=== PATIENT | male | born 1970 | race African-American/Black ===

== ENCOUNTER 2019-03-15 12:04 | Inpatient (IN) ==
[2019-03-15] MEDS ORDERED: SODIUM CHLORIDE 0.9% 500 ML IV SCH (12:30)
--- NOTE | 2019-03-15 12:44 | XRay Report ---
SINGLE VIEW CHEST CLINICAL HISTORY: Dizziness. FINDINGS: An AP, portable, upright chest radiograph is obtained. No prior studies are available for c omparison at the time of dictation. The examination is degraded by portable technique and patient rot ation. A single lead cardiac AICD is present within the left lateral chest wall. The heart is enlarge d. There is pulmonary vascular congestion and mild interstitial edema. Trace pleural effusions are muhammad spected. Bibasilar atelectasis is noted. No pneumothorax is seen. The skeletal structures are osteope lucian. The bony thorax is grossly intact. Advanced arthritic change is seen in the left shoulder. IMPRESSION: 1. Cardiomegaly and AICD with evidence of congestive failure. 2. Suspect trace pleural effusions. Electronically signed by: Jeremias Escalona M.D. 03/15/2019 12:43 PM
[2019-03-15 12:56] LABS: Basophils # (auto) 0.02 K/uL (0-0.2); Basophils % (auto) 0.2 %; Eosinophils # (auto) 0.12 K/uL (0-0.5); Eosinophils % (auto) 1.2 %; Hematocrit (blood only) 35.1 % (42-52); Hemoglobin 12.3 g/dL (14.0-18.0); Immature Granulocytes # (auto) 0.05 K/uL (0.00-0.02); Immature Granulocytes % (auto) 0.5 %; Lymphocytes # (auto) 1.57 K/uL (1.2-3.4); Lymphocytes % (auto) 15.1 %; Mean Corpuscular Volume 81.3 fL (80-100); Mean Platelet Volume 10.6 fL (7.4-10.4); Monocytes # (auto) 0.74 K/uL (0.11-0.59); Monocytes % (auto) 7.1 %; Neutrophils # (auto) 7.91 K/uL (1.4-6.5); Neutrophils % (auto) 75.9 %; Platelet Count 189 K/uL (130-400); RDW Coefficient of Variation 14.7 % (11.5-14.5); RDW Standard Deviation 43.6 fL (36.4-46.3); Red Blood Count 4.32 M/uL (4.7-6.1); White Blood Count 10.41 K/uL (4.8-10.8)
[2019-03-15 13:23] LABS: Albumin Globulin Ratio 0.7 (0.9-2); Albumin Level 3.5 gm/dl (3.4-5.0); BUN Creatinine Ratio 22.1 (10-20); Bilirubin,Total 0.6 mg/dl (0.2-1); Calcium 9.2 mg/dl (8.5-10.1); Creatinine Clr Calc Pharmacy 55.1 ml/min; Est GFR (African American) 34.2; Est GFR (Non-African American) 29.5; Total Protein 8.5 gm/dl (6.4-8.2)
[2019-03-15] MEDS ORDERED: ASPIRIN CHEW 324 MG PO STA (13:33)
[2019-03-15] MEDS ORDERED: NovoLIN-R INSULIN PER UNIT CHARGE IV STA (13:33)
[2019-03-15 13:42] LABS: Troponin I 0.106 ng/ml (0-0.045)
--- NOTE | 2019-03-15 14:11 | XRay Report ---
XR chest 1V portable HISTORY: Evaluate pacemaker. PER ER DR REQUEST COMPARISON: None. FINDINGS: There is a left lower lateral chest wall pacemaker. There is a single lead which appears in tact. Of note, only the proximal portion of the lead is identified on this study. IMPRESSION: Confirmation of a left-sided single lead pacemaker. Electronically signed by: Elver Barker M.D. 03/15/2019 2:09 PM
[2019-03-15 14:17] LABS: Potassium 5.8 mmol/L (3.5-5.1)
[2019-03-15 14:19] LABS: INR 1.1 (0.9-1.1); Partial Thromboplastin Ratio 0.9; Partial Thromboplastin Time 24.8 Seconds (21.0-31.0); Prothrombin Time 10.9 Seconds (9.0-12.0)
[2019-03-15 14:23] LABS: D Dimer 620 ug/L FEU (0-500)
[2019-03-15 14:25] LABS: Beta-Hydroxybutyrate 1.23 mg/dl (0.2-2.81)
--- NOTE | 2019-03-15 15:25 | History & Physical Report ---
Date of Service March 15, 2019 Assessment & Plan (1) Bradycardia: (2) History of implantable cardioverter-defibrillator (ICD) placement: This is a 48-year-old male with a PMH of systolic heart failure S/P ICD placement, DM II, HTN, HLD, COPD, CKD III and other medical problems listed below who presented by [facility] team today due to reported bradycardia in the 30s-40s. -HR in 70-80s since arrival -Device interrogation ordered. Request for device info requested from [facility] In [place] (fax & called) -ICD placed in 2013 at [facility]. Last interrogation was in 2016 -Pacer pads, ext defib ordered to have at bedside -Monitor on telemetry -Consider cardiology consult if bradycardia returns (3) Elevated troponin: Initial troponin mildly elevated at 0.106 in setting of ERENDIRA on CKD III -No chest pain or acute EKG changes -Cr elevated at 2.5 (baseline ~1.6-2), BUN of 55 -Trend troponin, monitor on tele (4) Elevated d-dimer: D-dimer obtained in ED with mild elevation at 620 -No tachycardia, oxygen saturation stable at 98% on RA, SOB has been chronic in setting of CHF so low index of suspicion for PE -CTA chest contraindicated in setting of ERENDIRA -Will obtain bilateral LE dopplers to evaluate for DVT (5) Acute kidney injury superimposed on chronic kidney disease: Cr elevated at 2.5 (baseline ~1.6-2), BUN of 55 -Already received diuretics today. Will hold ARB -Renal ultrasound to rule out obstruction as cause of ERENDIRA -Monitor with daily BMP (6) Hyperglycemia: (7) Diabetes mellitus, type II: BSG of 339 upon arrival. Was given 5 units of IV insulin in ED -Home regimen inclues Levemir 30u AM, 60u PM with SSI with meals -Most recent a1c of 7.6 in Dec 2018 -Glycemic consult placed -BSG AC HS (8) Systolic heart failure: Appears euvolemic on exam -Already took torsemide 40mg and spironolactone 25mg today -Assess volume status in AM to determine whether torsemide should be held or not -Repeat 2D echo (9) HTN (hypertension): Continue hydralazine, carvedilol with hold parameters, diuretics -Holding valsartan (10) COPD (chronic obstructive pulmonary disease): At baseline. Continue home inhalers PRN (11) JD on CPAP: CPAP HS DVT Ppx: SCDs Code status: FULL PCP: [facility] Dispo: Admitted to [facility]. Discharge planning ordered. Patient seen in collaboration with Dr. Bryant. Please see addendum. History of Present Illness Chief Complaint: Dizziness, fatigue Primary Care Provider: Dex Kumar DO This is a 48-year-old male with a PMH of systolic heart failure S/P ICD placement, DM II, HTN, HLD, COPD, CKD III and other medical problems listed below who presented by [facility] team today due to reported bradycardia in the 30s-40s. Patient has felt fatigued, lightheaded and short of breath for the past month. Denies any headache, chest pain, orthopnea, PND, wheezing or lower extremity edema. Denies any weight gain. Has recently establish care with [facility] and was being seen this morning with by nutrition for optimization of diabetes. When vitals were taken, heart rate was found to be in the 40s and patient was sent to the ED for further evaluation. Patient reports a lateral wall pacemaker placed in 2013 at [facility] in [place]. Last interrogation was in 2015. Had a 2D echo performed in December 2018 but non-optimal study was performed and EF was unable to be quantified. Previous echo was from April 2018 which revealed EF of 25 to 30%. Does not think he is followed with a [employer] member in the past. Denies any recent illness. No fever, chills, headache, palpitations, nausea, vomiting, abdominal pain, dysuria, diarrhea or constipation. Upon arrival in ED, patient is hemodynamically stable. Saturating at 97% on room air. Heart rate has been in the 70s to 80s. No leukocytosis. Potassium of 5.8, creatinine of 2.5, BUN of 55. Troponin elevated at 0.106. Glucose of 339, beta hydroybutyric acid WNL. Allergies Allergy/AdvReac Type Severity Reaction Status Date / Time No Known Allergies Allergy Unverified 03/15/19 12:50 Home Medications Home Medications Medication Instructions Recorded Confirmed Type albuterol sulfate 2 puff INHALATION Q4H PRN 03/15/19 03/15/19 History aspirin 81 mg PO DAILY 03/15/19 03/15/19 History atorvastatin 40 mg PO DAILY 03/15/19 03/15/19 History carvedilol 25 mg PO BID 03/15/19 03/15/19 History clotrimazole 10 mg PO UD 03/15/19 03/15/19 History fluticasone propion-salmeterol 1 puff INHALATION BID 03/15/19 03/15/19 History [Wixela Inhub] hydralazine 100 mg PO TID 03/15/19 03/15/19 History insulin detemir U-100 [Levemir 30 unit SUBCUT QAM 03/15/19 03/15/19 History U-100 Insulin] insulin detemir U-100 [Levemir 60 unit SUBCUT HS 03/15/19 03/15/19 History U-100 Insulin] isosorbide mononitrate 60 mg PO DAILY 03/15/19 03/15/19 History potassium chloride 20 meq PO DAILY 03/15/19 03/15/19 History spironolactone 25 mg PO DAILY 03/15/19 03/15/19 History sumatriptan succinate 100 mg PO UD PRN 03/15/19 03/15/19 History torsemide 40 mg PO DAILY 03/15/19 03/15/19 History trazodone 300 mg PO HS 03/15/19 03/15/19 History valsartan 80 mg PO BID 03/15/19 03/15/19 History Past Med/Surg History Medical History Depression (Chronic) CKD (chronic kidney disease), stage III (Chronic) HLD (hyperlipidemia) (Chronic) HTN (hypertension) (Chronic) COPD (chronic obstructive pulmonary disease) (Chronic) JD on CPAP (Chronic) Systolic heart failure (Chronic) Diabetes mellitus, type II (Chronic) Surgical History History of implantable cardioverter-defibrillator (ICD) placement (Resolved) Lateral chest wall placement in 2013 at [facility] H/O foot surgery (Resolved) History of ear surgery (Resolved) Family History Father Coronary heart disease Mother Diabetes Social History Preferred Language: Kuwaiti Communication Ability: Effective Faculty Administrator Required: No Beliefs That Will Affect Care: None Current Living Situation: Alone Other Information That Helps Us Care for You: No ( from s/o for now) Feels Safe at Home: Yes Safety Concerns: Feels Safe At This Time Smoking Status: Current some day smoker Tobacco Type: cigarettes Cigarettes Per Day: 2-3 Do You Dip or Chew Tobacco: No Second Hand Exposure: No Tobacco Cessation Education Requested by Patient: No Hx Alcohol Use: Yes Hx Substance Use: Yes substance use type: marijuana Last Used Substance: Unknow n Last Used Substance Other:: not for awhile Review of Systems Review of Systems: At least ten systems reviewed and negative except as noted in the HPI. Physical Exam Physical Exam: General Appearance: WD/WN, no apparent distress, morbidly obese Head: normocephalic, atraumatic Eyes: normal inspection, PERRL, EOMI ENT: hearing grossly normal, pharynx normal (moist mucous membranes) Neck: supple, no JVD, no adenopathy Respiratory/Chest: Decreased lung sounds at bases. No wheezes, rales or rhonci. No respiratory distress or accessory muscle use Cardiovascular: regular rate, rhythm, no murmur, normal peripheral pulses Abdomen/GI: normal bowel sounds, soft, non-tender to palpation Extremities/Musculoskelatal: normal inspection, no calf tenderness, normal capillary refill, no pedal edema Neurologic/Psych: alert, normal mood/affect, oriented x 3 Skin: normal color, warm/dry Results & Data Vital Signs (Past 12 Hours) Vital Signs Temp Pulse Pulse Resp BP Pulse Ox 03/15/19 14:44 75 18 97 03/15/19 13:48 79 22 96 03/15/19 12:24 79 16 121/53 L 98 03/15/19 12:15 37.1 C 80 20 98 Laboratory Results Short CBC 03/15/19 03/15/19 03/15/19 Range/Units 12:44 12:44 13:51 WBC 10.41 (4.8-10.8) K/uL Hgb 12.3 L (14.0-18.0) g/dL Hct 35.1 L (42-52) % Plt Count 189 (130-400) K/uL D-Dimer Cancelled Potassium (3.5-5.1) mmol/L 03/15/19 03/15/19 Range/Units 13:51 13:51 WBC (4.8-10.8) K/uL Hgb (14.0-18.0) g/dL Hct (42-52) % Plt Count (130-400) K/uL D-Dimer 620 H* Potassium 5.8 H (3.5-5.1) mmol/L BMP 03/15/19 03/15/19 12:44 13:51 Sodium 132 L Potassium 5.8 H Chloride 103 Carbon Dioxide 25 BUN 55 H Creatinine 2.50 H Glucose 339 H* Calcium 9.2 Cardiac Enzymes 03/15/19 Range/Units 12:44 Troponin I 0.106 H* (0-0.045) ng/ml Liver Function 03/15/19 03/15/19 Range/Units 12:44 13:51 Total Bilirubin 0.6 (0.2-1) mg/dl AST 14 L (15-37) U/L ALT 30 (12-78) U/L Alkaline Phosphatase 78 (45-117) U/L Albumin 3.5 (3.4-5.0) gm/dl Diagnostic Findings CXR: IMPRESSION: 1. Cardiomegaly and AICD with evidence of congestive failure. 2. Suspect trace pleural effusions. IMPRESSION: Confirmation of a left-sided single lead pacemaker. ECG Rhythm: sinus rhythm Findings: + LAFB (known) and + PVC Change: no significant change Supervising Physician Co-Signing Physician Notes Patient is a 48-year-old male with history of CHF S/P AICD, CKD, COPD and other problems presents with history of generalized weakness, shortness of breath on exertion since last few months. Patient was noted to have bradycardia by his home health nurse who recommended to be evaluated in ED. Patient believes his AICD battery is due for change. He denies any weight gain, lower extremity edema, chest pain. Reports associated mild dizziness. Please review HPI for complete details of presentation. CXR suggestive of congestion. Also noted to have blood glucose level elevated at 339, creatinine levels increased from baseline to 2.5, mild troponin elevation 0.106, elevated d-dimer. On exam patient is obese, normocephalic atraumatic, no apparent distress, lungs decreased breath sounds at bases, clear to auscultation, distant heart sounds, pacemaker on left side of the chest, abdomen soft nontender, no pedal edema, grossly normal neurological focal deficits. Patient is admitted for evaluation of bradycardia, AICD interrogation, ERENDIRA, hyperglycemia, and for further evaluation of elevated troponins and elevated d-dimer. Patient clinically does not look volume overloaded. Will hold torsemide, valsartan. Check renal ultrasound to rule out obstruction. Received IV fluids in ED. Consider IV fluids tomorrow based on volume status and renal function. Pacemaker interrogation requested. Trend cardiac enzymes, check echo for wall motion abnormality. Venous Dopplers negative for DVT. Consider VQ scan if suspicious for PE. Pacer pads at bedside. Monitor in telemetry. I personally reviewed the record. Patient is interviewed and examined at bedside. Patient's care is coordinated with Katie Ramsey PA-C. Please refer to the documentation above for details of patient's presentation and for discussion of other issues.
[2019-03-15] MEDS ORDERED: PHARMACY GLYCEMIC MGMT CONSULT STA (15:40)
[2019-03-15] MEDS ORDERED: ONDANSETRON INJ 2 MG/ML 2 ML VIAL IV PRN (16:36)
[2019-03-15] MEDS ORDERED: ALBUTEROL HFA 8 GM INHALER INH PRN (16:36)
[2019-03-15] MEDS ORDERED: CARBOHYDRATES FOR HYPOGLYCEMIA PO PRN (16:36)
[2019-03-15] MEDS ORDERED: POLYETHYLENE (MIRALAX) 17 GM PACK PO PRN (16:36)
[2019-03-15] MEDS ORDERED: GLUCOSE 40% GEL 15 GM TUBE PO PRN (16:36)
[2019-03-15] MEDS ORDERED: ACETAMINOPHEN 325 MG TAB PO PRN (16:36)
[2019-03-15] MEDS ORDERED: SUMAtriptan succinate 50 MG TAB PO PRN (16:36)
[2019-03-15] MEDS ORDERED: GLUCAGON FOR INJ 1 MG VIAL SQ PRN (16:36)
[2019-03-15] MEDS ORDERED: DEXTROSE 50% 50 ML SYRINGE IV PRN (16:36)
[2019-03-15] MEDS ORDERED: GLUCOSE 10 TABS/TUBE PO PRN (16:36)
--- NOTE | 2019-03-15 16:44 | Emergency Department Note ---
Entered by Sher Carlton acting as a scribe for History of Present Illness General Chief complaint: Dizziness Stated complaint: weakness/dizzy Source: patient Mode of arrival: ambulatory History of Present Illness Provider complaint: Dizziness Onset (ago): month(s) 1 Location: head Pain Consistency: + constant Quality: + other (Dizziness) Associated symptoms: + shortness of breath; no nausea/vomiting Patient is a 48 year old male who presents himself to the ER with complaint of dizziness beginning a month ago. Patient states he had a nurse from [facility] who told him he had to get his defibrillator battery changed in the ER. Patient states he has been having accompanying symptoms of runny nose and coughs, but this has been present for quite some time now. He states when he coughs he does get some phlegm in the morning. He states his pain consistency as constant. Patient also states he has had a pacemaker placed in him in 2013 and believes its a [employer] scientific. Patient states his weight has stabilized and he takes no blood thinners. Patient also reports having shortness of breath all throu ghout the day. Patients EF revealed values of 30 to 35% and moderate MR. Patient had a normal cath on November 2017 and has non ischemic cardiomyopathy, He denies nausea and vomiting. Home Medications Home Medications Medication Instructions Recorded Confirmed Type albuterol sulfate 2 puff INHALATION Q4H PRN 03/15/19 03/15/19 History aspirin 81 mg PO DAILY 03/15/19 03/15/19 History atorvastatin 40 mg PO DAILY 03/15/19 03/15/19 History carvedilol 25 mg PO BID 03/15/19 03/15/19 History clotrimazole 10 mg PO UD 03/15/19 03/15/19 History fluticasone propion-salmeterol 1 puff INHALATION BID 03/15/19 03/15/19 History [Wixela Inhub] hydralazine 100 mg PO TID 03/15/19 03/15/19 History insulin detemir U-100 [Levemir 30 unit SUBCUT QAM 03/15/19 03/15/19 History U-100 Insulin] insulin detemir U-100 [Levemir 60 unit SUBCUT HS 03/15/19 03/15/19 History U-100 Insulin] isosorbide mononitrate 60 mg PO DAILY 03/15/19 03/15/19 History potassium chloride 20 meq PO DAILY 03/15/19 03/15/19 History spironolactone 25 mg PO DAILY 03/15/19 03/15/19 History sumatriptan succinate 100 mg PO UD PRN 03/15/19 03/15/19 History torsemide 40 mg PO DAILY 03/15/19 03/15/19 History trazodone 300 mg PO HS 03/15/19 03/15/19 History valsartan 80 mg PO BID 03/15/19 03/15/19 History Allergies Allergy/AdvReac Type Severity Reaction Status Date / Time No Known Allergies Allergy Unverified 03/15/19 12:50 Past Med/Surg History Medical History Depression (Chronic) CKD (chronic kidney disease), stage III (Chronic) HLD (hyperlipidemia) (Chronic) HTN (hypertension) (Chronic) COPD (chronic obstructive pulmonary disease) (Chronic) JD on CPAP (Chronic) Systolic heart failure (Chronic) Diabetes mellitus, type II (Chronic) Surgical History History of implantable cardioverter-defibrillator (ICD) placement (Resolved) Lateral chest wall placement in 2013 at [facility] H/O foot surgery (Resolved) History of ear surgery (Resolved) Family History Father Coronary heart disease Mother Diabetes Social History Preferred Language: Japanese Communication Ability: Effective 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 Beliefs That Will Affect Care: None Current Living Situation: Alone Other Information That Helps Us Care for You: No ( from s/o for now) Feels Safe at Home: Yes Safety Concerns: Feels Safe At This Time Smoking Status: Current some day smoker Tobacco Type: cigarettes Cigarettes Per Day: 2-3 Do You Dip or Chew Tobacco: No Second Hand Exposure: No Tobacco Cessation Education Requested by Patient: No Hx Alcohol Use: Yes Hx Substance Use: Yes substance use type: marijuana Last Used Substance: Unkn own Last Used Substance Other:: not for awhile Review of Systems See HPI for pertinent positives & negatives. and A total of 10 systems reviewed and were otherwise negative Physical Exam Vital Signs Vital Signs - 24 hr 03/15/19 12:15 03/15/19 12:24 03/15/19 12:36 Temperature 37.1 C Temperature Source Oral Sepsis Recent Fever Within 48 Hours No Sepsis Action Taken by Nursing No Action Required Pulse Rate - Lying Pulse Rate - Sitting Pulse Rate - Standing Pulse Rate 80 82 Pulse Rate [Finger] 79 Pulse Rate from SpO2 Sensor 55 L Respiratory Rate 20 16 17 Respiratory Effort / Characteristics Respiratory Depth Respiratory Pattern Blood Pressure - Lying Blood Pressure - Sitting Blood Pressure- Standing Blood Pressure Blood Pressure [Right Arm] 121/53 L Blood Pressure Mean Blood Pressure Mean [Right Arm] 75 Pulse Oximetry 98 98 97 Oxygen Delivery Method Room Air Room Air 03/15/19 12:40 03/15/19 12:50 03/15/19 13:00 Temperature Temperature Source Sepsis Recent Fever Within 48 Hours Sepsis Action Taken by Nursing Pulse Rate - Lying Pulse Rate - Sitting Pulse Rate - Standing Pulse Rate 81 81 85 Pulse Rate [Finger] Pulse Rate from SpO2 Sensor 52 L 55 L Respiratory Rate 25 H 22 17 Respiratory Effort / Characteristics Respiratory Depth Respiratory Pattern Blood Pressure - Lying Blood Pressure - Sitting Blood Pressure- Standing Blood Pressure Blood Pressure [Right Arm] Blood Pressure Mean Blood Pressure Mean [Right Arm] Pulse Oximetry 97 97 Oxygen Delivery Method 03/15/19 13:04 03/15/19 13:06 03/15/19 13:07 Temperature Temperature Source Sepsis Recent Fever Within 48 Hours Sepsis Action Taken by Nursing Pulse Rate - Lying 79 Pulse Rate - Sitting 81 Pulse Rate - Standing 81 Pulse Rate 80 81 Pulse Rate [Finger] Pulse Rate from SpO2 Sensor Respiratory Rate 15 21 Respiratory Effort / Characteristics Respiratory Depth Respiratory Pattern Blood Pressure - Lying 117/58 L Blood Pressure - Sitting 134/72 Blood Pressure- Standing 136/83 Blood Pressure 117/58 L 134/72 Blood Pressure [Right Arm] Blood Pressure Mean 77 92 Blood Pressure Mean [Right Arm] Pulse Oximetry Oxygen Delivery Method 03/15/19 13:10 03/15/19 13:12 03/15/19 13:20 Temperature Temperature Source Sepsis Recent Fever Within 48 Hours Sepsis Action Taken by Nursing Pulse Rate - Lying Pulse Rate - Sitting Pulse Rate - Standing Pulse Rate 83 79 75 Pulse Rate [Finger] Pulse Rate from SpO2 Sensor Respiratory Rate 16 23 28 H Respiratory Effort / Characteristics Respiratory Depth Respiratory Pattern Blood Pressure - Lying Blood Pressure - Sitting Blood Pressure- Standing Blood Pressure 136/83 Blood Pressure [Right Arm] Blood Pressure Mean 100 Blood Pressure Mean [Right Arm] Pulse Oximetry Oxygen Delivery Method 03/15/19 13:34 03/15/19 13:40 03/15/19 13:48 Temperature Temperature Source Sepsis Recent Fever Within 48 Hours Sepsis Action Taken by Nursing Pulse Rate - Lying Pulse Rate - Sitting Pulse Rate - Standing Pulse Rate 100 H 77 Pulse Rate [Finger] 79 Pulse Rate from SpO2 Sensor 54 L 51 L Respiratory Rate 25 H 24 22 Respiratory Effort / Characteristics Respiratory Depth Respiratory Pattern Blood Pressure - Lying Blood Pressure - Sitting Blood Pressure- Standing Blood Pressure Blood Pressure [Right Arm] Blood Pressure Mean Blood Pressure Mean [Right Arm] Pulse Oximetry 91 97 96 Oxygen Delivery Method Room Air 03/15/19 13:50 03/15/19 14:00 03/15/19 14:07 Temperature Temperature Source Sepsis Recent Fever Within 48 Hours Sepsis Action Taken by Nursing Pulse Rate - Lying Pulse Rate - Sitting Pulse Rate - Standing Pulse Rate 76 78 Pulse Rate [Finger] Pulse Rate from SpO2 Sensor 50 L 47 L Respiratory Rate 24 20 Respiratory Effort / Characteristics Spontaneous SOB on Exertion Respiratory Depth Normal Respiratory Pattern Regular Blood Pressure - Lying Blood Pressure - Sitting Blood Pressure- Standing Blood Pressure Blood Pressure [Right Arm] Blood Pressure Mean Blood Pressure Mean [Right Arm] Pulse Oximetry 98 96 Oxygen Delivery Method Room Air 03/15/19 14:10 03/15/19 14:20 03/15/19 14:30 Temperature Temperature Source Sepsis Recent Fever Within 48 Hours Sepsis Action Taken by Nursing Pulse Rate - Lying Pulse Rate - Sitting Pulse Rate - Standing Pulse Rate 77 77 76 Pulse Rate [Finger] Pulse Rate from SpO2 Sensor 49 L 63 62 Respiratory Rate 34 H 18 19 Respiratory Effort / Characteristics Respiratory Depth Respiratory Pattern Blood Pressure - Lying Blood Pressure - Sitting Blood Pressure- Standing Blood Pressure Blood Pressure [Right Arm] Blood Pressure Mean Blood Pressure Mean [Right Arm] Pulse Oximetry 98 97 92 Oxygen Delivery Method 03/15/19 14:40 03/15/19 14:44 03/15/19 14:50 Temperature Temperature Source Sepsis Recent Fever Within 48 Hours Sepsis Action Taken by Nursing Pulse Rate - Lying Pulse Rate - Sitting Pulse Rate - Standing Pulse Rate 75 79 Pulse Rate [Finger] 75 Pulse Rate from SpO2 Sensor 49 L 55 L Respiratory Rate 12 18 23 Respiratory Effort / Characteristics Respiratory Depth Respiratory Pattern Blood Pressure - Lying Blood Pressure - Sitting Blood Pressure- Standing Blood Pressure Blood Pressure [Right Arm] Blood Pressure Mean Blood Pressure Mean [Right Arm] Pulse Oximetry 97 97 96 Oxygen Delivery Method Room Air 03/15/19 15:00 03/15/19 15:16 03/15/19 15:17 Temperature Temperature Source Sepsis Recent Fever Within 48 Hours Sepsis Action Taken by Nursing Pulse Rate - Lying Pulse Rate - Sitting Pulse Rate - Standing Pulse Rate 77 84 75 Pulse Rate [Finger] 81 Pulse Rate from SpO2 Sensor 76 Respiratory Rate 15 25 H 17 Respiratory Effort / Characteristics Respiratory Depth Respiratory Pattern Blood Pressure - Lying Blood Pressure - Sitting Blood Pressure- Standing Blood Pressure 119/75 Blood Pressure [Right Arm] 119/75 Blood Pressure Mean 89 Blood Pressure Mean [Right Arm] 89 Pulse Oximetry 93 Oxygen Delivery Method Room Air 03/15/19 15:20 03/15/19 15:30 03/15/19 15:31 Temperature Temperature Source Sepsis Recent Fever Within 48 Hours Sepsis Action Taken by Nursing Pulse Rate - Lying Pulse Rate - Sitting Pulse Rate - Standing Pulse Rate 77 75 76 Pulse Rate [Finger] Pulse Rate from SpO2 Sensor 76 60 67 Respiratory Rate 26 H 11 L 16 Respiratory Effort / Characteristics Respiratory Depth Respiratory Pattern Blood Pressure - Lying Blood Pressure - Sitting Blood Pressure- Standing Blood Pressure 140/86 Blood Pressure [Right Arm] Blood Pressure Mean 104 Blood Pressure Mean [Right Arm] Pulse Oximetry 97 94 97 Oxygen Delivery Method 03/15/19 15:40 03/15/19 15:50 03/15/19 16:00 Temperature Temperature Source Sepsis Recent Fever Within 48 Hours Sepsis Action Taken by Nursing Pulse Rate - Lying Pulse Rate - Sitting Pulse Rate - Standing Pulse Rate 75 72 73 Pulse Rate [Finger] Pulse Rate from SpO2 Sensor 67 69 73 Respiratory Rate 18 13 15 Respiratory Effort / Characteristics Respiratory Depth Respiratory Pattern Blood Pressure - Lying Blood Pressure - Sitting Blood Pressure- Standing Blood Pressure 132/90 Blood Pressure [Right Arm] Blood Pressure Mean 104 Blood Pressure Mean [Right Arm] Pulse Oximetry 98 98 98 Oxygen Delivery Method 03/15/19 16:10 03/15/19 16:15 Temperature Temperature Source Sepsis Recent Fever Within 48 Hours Sepsis Action Taken by Nursing Pulse Rate - Lying Pulse Rate - Sitting Pulse Rate - Standing Pulse Rate 70 70 Pulse Rate [Finger] Pulse Rate from SpO2 Sensor 66 Respiratory Rate 25 H 25 H Respiratory Effort / Characteristics Respiratory Depth Respiratory Pattern Blood Pressure - Lying Blood Pressure - Sitting Blood Pressure- Standing Blood Pressure 132/90 Blood Pressure [Right Arm] Blood Pressure Mean Blood Pressure Mean [Right Arm] Pulse Oximetry 98 98 Oxygen Delivery Method Room Air GENERAL: obese, alert, well appearing, well nourished, no distress, non-toxic, speaking in full sentences EYE EXAM: normal conjunctiva, PERRL and EOM's intact OROPHARYNX: no exudate, no erythema, lips, buccal mucosa, and tongue normal and mucous membranes are moist NECK: supple, no nuchal rigidity, no adenopathy, non-tender LUNGS: Clear to auscultation. Normal chest wall mechanics HEART: no distant murmurs, S1 normal and S2 normal ABDOMEN: abdomen soft, non-tender, normo-active bowel sounds, no masses, no rebound or guarding. BACK: Back is symmetrical on inspection and there is no deformity, no midline tenderness, no CVA tenderness. SKIN: no rashes and no bruising UPPER EXTREMITIES: upper extremities are grossly normal. LOWER EXTREMITIES: No pitting edema. NEURO EXAM: Normal sensorium, cranial nerves II-XII intact, normal speech, no weakness of arms, no weakness of legs. No drift. Finger to nose intact. Gross sensation intact. Course Vital signs were reviewed and showed hypotension. The patients medical record was reviewed The above diagnostic studies were performed and reviewed. ED treatments and interventions as stated above. 1220: The patient was evaluated in room A11. A complete history and physical examination was performed. 1346: I spoke with Katie Ramsey PA-C regarding the patient's case and she will admit the patient to [facility]. 1348: Upon reevaluation, the patient will be admitted.I discussed my findings with the patient and her understands and agrees with the treatment plan. Based on the patients age, coexisting illnesses, exam and lab findings the decision to treat as an inpatient was made. The patient remained stable while under my care. The patient will be evaluated for further management by [facility]. Consultations Consultation #1: [facility]. Time: 13:46 Administered Medications Discontinued Medications Aspirin (Aspirin) 324 mg PO NOW STA Stop: 03/15/19 13:34 Last Admin: 03/15/19 13:44 Dose: 324 mg Documented by: [id number] Sodium Chloride (Nss) 500 mls @ 999 mls/hr IV .Q31M ADINA Stop: 03/15/19 13:00 Last Infusion: 03/15/19 13:48 Dose: 0 mls/hr Documented by: [id number] Admin: 03/15/19 13:15 Dose: 999 mls/hr Documented by: [id number] Insulin Human Regular (Novolin R U-100 Per Unit) 5 units IV NOW STA Stop: 03/15/19 13:34 Last Admin: 03/15/19 13:44 Dose: 5 units Documented by: [id number] Cosigned by: [id number] Medical Decision Making Differential Diagnosis Differential diagnosis: Etiologies such as benign positional vertigo, labrynthitis, dehydration, hypovolemia, anemia, tumor, infection, hypoglycemia, electrolyte abnormalities, cardiac sources, toxicological sources, central neurologic process, as well as others were entertained. Medical Records Attestation: I reviewed the patient's medical records. Home Medications Current Medication List: was personally reviewed by me Laboratory Data Attestation: I reviewed the patient's lab results. Result diagrams: 03/15/19 12:44 03/15/19 13:51 Lab Results 03/15/19 03/15/19 03/15/19 Range/Units 12:44 12:44 12:44 WBC 10.41 (4.8-10.8) K/uL RBC 4.32 L (4.7-6.1) M/uL Hgb 12.3 L (14.0-18.0) g/dL Hct 35.1 L (42-52) % MCV 81.3 (80-100) fL MCH 28.5 (25-34) pg MCHC 35.0 (32-36) g/dL RDW Std Deviation 43.6 (36.4-46.3) fL RDW Coeff of Hillary 14.7 H (11.5-14.5) % Plt Count 189 (130-400) K/uL MPV 10.6 H (7.4-10.4) fL Immature Gran % (Auto) 0.5 % Neut % (Auto) 75.9 % Lymph % (Auto) 15.1 % [place] % (Auto) 7.1 % Eos % (Auto) 1.2 % Baso % (Auto) 0.2 % Immature Gran # (Auto) 0.05 H (0.00-0.02) K/uL Neut # (Auto) 7.91 H (1.4-6.5) K/uL Lymph # (Auto) 1.57 (1.2-3.4) K/uL [place] # (Auto) 0.74 H (0.11-0.59) K/uL Eos # (Auto) 0.12 (0-0.5) K/uL Baso # (Auto) 0.02 (0-0.2) K/uL PT Cancelled INR Cancelled APTT (21.0-31.0) Seconds PTT Ratio D-Dimer Sodium 132 L (136-145) mmol/L Potassium (3.5-5.1) mmol/L Chloride 103 (98-107) mmol/L Carbon Dioxide 25 (21-32) mmol/L Anion Gap 4.0 (3-11) BUN 55 H (7-18) mg/dl Creatinine 2.50 H (0.6-1.4) mg/dl Est Cr Clr Drug Dosing 55.1 ml/min Est GFR ( Amer) 34.2 Est GFR (Non-Af Amer) 29.5 BUN/Creatinine Ratio 22.1 H (10-20) Glucose 339 H* (70-99) mg/dl Calcium 9.2 (8.5-10.1) mg/dl Total Bilirubin 0.6 (0.2-1) mg/dl AST (15-37) U/L ALT 30 (12-78) U/L Alkaline Phosphatase 78 (45-117) U/L Troponin I 0.106 H* (0-0.045) ng/ml Total Protein 8.5 H (6.4-8.2) gm/dl Albumin 3.5 (3.4-5.0) gm/dl Globulin 5.0 H (2.5-4.0) gm/dl Albumin/Globulin Ratio 0.7 L (0.9-2) Beta-Hydroxybutyric Acd (0.2-2.81) mg/dl 03/15/19 03/15/19 03/15/19 Range/Units 13:51 13:51 13:51 WBC (4.8-10.8) K/uL RBC (4.7-6.1) M/uL Hgb (14.0-18.0) g/dL Hct (42-52) % MCV (80-100) fL MCH (25-34) pg MCHC (32-36) g/dL RDW Std Deviation (36.4-46.3) fL RDW Coeff of Hillary (11.5-14.5) % Plt Count (130-400) K/uL MPV (7.4-10.4) fL Immature Gran % (Auto) % Neut % (Auto) % Lymph % (Auto) % [place] % (Auto) % Eos % (Auto) % Baso % (Auto) % Immature Gran # (Auto) (0.00-0.02) K/uL Neut # (Auto) (1.4-6.5) K/uL Lymph # (Auto) (1.2-3.4) K/uL [place] # (Auto) (0.11-0.59) K/uL Eos # (Auto) (0-0.5) K/uL Baso # (Auto) (0-0.2) K/uL PT 10.9 INR 1.1 APTT 24.8 (21.0-31.0) Seconds PTT Ratio 0.9 D-Dimer Cancelled 620 H* Sodium (136-145) mmol/L Potassium 5.8 H (3.5-5.1) mmol/L Chloride (98-107) mmol/L Carbon Dioxide (21-32) mmol/L Anion Gap (3-11) BUN (7-18) mg/dl Creatinine (0.6-1.4) mg/dl Est Cr Clr Drug Dosing ml/min Est GFR ( Amer) Est GFR (Non-Af Amer) BUN/Creatinine Ratio (10-20) Glucose (70-99) mg/dl Calcium (8.5-10.1) mg/dl Total Bilirubin (0.2-1) mg/dl AST 14 L (15-37) U/L ALT (12-78) U/L Alkaline Phosphatase (45-117) U/L Troponin I (0-0.045) ng/ml Total Protein (6.4-8.2) gm/dl Albumin (3.4-5.0) gm/dl Globulin (2.5-4.0) gm/dl Albumin/Globulin Ratio (0.9-2) Beta-Hydroxybutyric Acd 1.23 (0.2-2.81) mg/dl Imaging Data Attestation: I personally reviewed and interpreted this imaging study as follows: Radiologist's Impression: Radiology results as stated below per my review and the radiologist's interpretation: XR chest 1V portable HISTORY: Evaluate pacemaker. PER ER DR REQUEST COMPARISON: None. FINDINGS: There is a left lower lateral chest wall pacemaker. There is a single lead which appears intact. Of note, only the proximal portion of the lead is identified on this study. IMPRESSION: Confirmation of a left-sided single lead pacemaker. Electronically signed by: Elver Barker M.D. 03/15/2019 2:09 PM Dictated: 03/15/19 1408 Transcribed: 03/15/19 1408 SINGLE VIEW CHEST CLINICAL HISTORY: Dizziness. FINDINGS: An AP, portable, upright chest radiograph is obtained. No prior studies are available for comparison at the time of dictation. The examination is degraded by portable technique and patient rotation. A single lead cardiac AICD is present within the left lateral chest wall. The heart is enlarged. There is pulmonary vascular congestion and mild interstitial edema. Trace pleural effusions are suspected. Bibasilar atelectasis is noted. No pneumothorax is seen. The skeletal structures are osteopenic. The bony thorax is grossly intact. Advanced arthritic change is seen in the left shoulder. IMPRESSION: 1. Cardiomegaly and AICD with evidence of congestive failure. 2. Suspect trace pleural effusions. Electronically signed by: Jeremias Escalona M.D. 03/15/2019 12:43 PM Dictated: 03/15/19 1242 Transcribed: 03/15/19 1242 ECG Data Attestation: I personally reviewed and interpreted this ECG as follows: Indication: other (Dizziness) Rate (beats per minute): 79 Rhythm: sinus rhythm Findings: + other (Left axis low voltage, TWI in Lateral and high lateral Carla ) and + PVC Comparison ECG Date: from (01-12-19) Change: the following changes noted (No t waves in lateral and high lateral ) Blood Pressure Blood Pressure Findings: Low blood pressure Blood Pressure Disposition: further management by hospitalist DANTE Higgins Patient is a 48-year-old male that presents the ER for feeling tired and dizzy for the past month. He notes nurse was at home and checked his pulse it was low in the 40s so was referred in. Upon review of his outside records he has a history of nonischemic cardiomyopathy with last cath in 2018 which was normal. EF is about 30%. Labs show no significant leukocytosis or anemia. D-dimer was elevated but creatinine was significant elevated 2.5. Potassium was slightly elevated at 5.8. Previous creatinine was 2.3 per [facility] records. Troponin was elevated at 0.1. He has no chest pain. Question if this is anginal equivalent of shortness of breath. Chest x-ray was unremarkable. Patient was given aspirin. He was updated bedside. Discussed with the hospitalist patient was agreeable for observation. Unable to evaluate pacer as were unable to figure out which one it was. Chest x-ray did supports CHF which I do favor is the overlying cause of the shortness of breath at this time. Impression & Plan Elevated troponin, Acute kidney injury, Hyperglycemia Discharge Plan Visit Data Chief Complaint: Dizziness Stated Complaint: weakness/dizzy ED Provider: Mazin Raya Discharge Problem: Elevated troponin, Acute kidney injury, Hyperglycemia Patient Disposition: Being Evaluated by Hospitalist Discharge Instructions Interventions: ED Discharge Assessment Last Done: 03/15/19 16:15 The scribe's documentation has been prepared under my direction and personally reviewed by me in its entirety. I confirm that the note above accurately reflects all work, treatment, procedures, and medical decision making performed by me.
--- NOTE | 2019-03-15 19:07 | Ultrasound Report ---
US venous doppler LE BI CLINICAL HISTORY: Leg swelling COMPARISON STUDY: No previous studies for comparison. FINDINGS: Real-time and color flow Doppler imaging were performed. Flow was seen within the femoral, popliteal and calf veins with no intraluminal thrombus demonstrated. The saphenous vein is patent. IMPRESSION: No evidence of lower extremity DVT. Electronically signed by: Melvin Lawson M.D. 03/15/2019 7:06 PM
--- NOTE | 2019-03-15 19:09 | Ultrasound Report ---
EXAMINATION: RENAL ULTRASOUND CLINICAL HISTORY: Acute renal insufficiency. Evaluate for renal obstruction. COMPARISON STUDY: FINDINGS: The right kidney measures 12.1 cm. The left kidney measures 11.9 cm. There is no right-mar ed hydronephrosis. There is minimal dilatation of the left renal pelvis. Is a 24 mm right renal cyst . There is borderline increased renal cortical echogenicity. The bladder was not fully distended. Neither ureteral jet was visualized. IMPRESSION : 1. 24 mm right renal cyst 2. No evidence of right renal hydronephrosis 3. Mild dilatation of the left renal pelvis. Electronically signed by: Melvin Lawson M.D. 03/15/2019 7:08 PM
[2019-03-15] MEDS: CLOTRIMAZOLE 10 MG TROCHE BUCCAL SCH ×2 (19:34→22:44)
[2019-03-15] MEDS ORDERED: PHARMACY GLYCEMIC MGMT CONSULT PRN (20:33)
[2019-03-15] MEDS ORDERED: TRAZODONE HCL 100 MG TAB PO SCH (21:00)
[2019-03-15] MEDS ORDERED: INSULIN DETEMIR FLEXPEN/FLEX TOUCH 100 UNITS/ML 3ML SC STA (21:39)
[2019-03-15] MEDS: FLUTICASONE/SALMETEROL 250/50 (ADVAIR) 14 PUFF/1 INHALER INH SCH (21:55)
[2019-03-15] MEDS: HydrALAZINE TAB 50 MG TAB PO SCH (21:56)
[2019-03-15] MEDS: CARVEDILOL 25 MG TAB PO SCH (21:56)
[2019-03-15] MEDS: INSULIN ASPART 100 UNITS/ML 3 ML PEN SC SCH (22:39)
[2019-03-16] MEDS: INSULIN ASPART 100 UNITS/ML 3 ML PEN SC SCH ×5 (01:11→17:39)
[2019-03-16 06:59] LABS: Hematocrit (blood only) 33.5 % (42-52); Hemoglobin 11.7 g/dL (14.0-18.0); Mean Corpuscular Hgb Conc 34.9 g/dL (32-36); Mean Corpuscular Volume 80.9 fL (80-100); Mean Platelet Volume 9.1 fL (7.4-10.4); Platelet Count 149 K/uL (130-400); RDW Coefficient of Variation 14.8 % (11.5-14.5); RDW Standard Deviation 43.2 fL (36.4-46.3); Red Blood Count 4.14 M/uL (4.7-6.1); White Blood Count 8.58 K/uL (4.8-10.8)
[2019-03-16 07:27] LABS: BUN Creatinine Ratio 23.6 (10-20); Calcium 8.5 mg/dl (8.5-10.1); Creatinine Clr Calc Pharmacy 65.3 ml/min; Est GFR (African American) 41.5; Est GFR (Non-African American) 35.8
[2019-03-16] MEDS: FLUTICASONE/SALMETEROL 250/50 (ADVAIR) 14 PUFF/1 INHALER INH SCH (08:29)
[2019-03-16] MEDS: CLOTRIMAZOLE 10 MG TROCHE BUCCAL SCH ×3 (08:30→15:19)
[2019-03-16] MEDS: CARVEDILOL 25 MG TAB PO SCH (08:33)
[2019-03-16] MEDS: HydrALAZINE TAB 50 MG TAB PO SCH ×2 (08:35→13:21)
[2019-03-16] MEDS ORDERED: SPIRONOLACTONE 25 MG TAB PO SCH (09:00)
[2019-03-16] MEDS ORDERED: ISOSORBIDE MONO EXTENDED REL 60 MG TABCR PO SCH (09:00)
[2019-03-16] MEDS ORDERED: TORSEMIDE 10 MG TAB PO SCH (09:00)
[2019-03-16] MEDS ORDERED: ASPIRIN 81 MG ECTAB PO SCH (09:00)
[2019-03-16] MEDS ORDERED: ATORVASTATIN 40 MG TAB PO SCH (09:00)
[2019-03-16] MEDS ORDERED: INSULIN DETEMIR FLEXPEN/FLEX TOUCH 100 UNITS/ML 3ML SC ONE (13:30)
--- NOTE | 2019-03-16 15:43 | Pharmacy Report ---
Glycemic Control Consultation - Date of Service March 16, 2019 - Scope Scope: Glycemic Pharmacist consulted for glycemic control and to write orders per [facility] inpatient glycemic control protocol - Objective Weight: 149.4 kg Accuchecks BSG (last 24hrs): 03/15/19 03/15/19 03/16/19 16:43 21:07 01:00 Glucose POC Glucose 210 H 327 H* 281 H 03/16/19 03/16/19 03/16/19 03:58 06:45 08:22 Glucose 132 H POC Glucose 224 H 109 H 03/16/19 11:54 Glucose POC Glucose 223 H Laboratory Data (last 24hrs): 03/15/19 03/16/19 16:49 06:45 Potassium 4.7 D 4.0 Carbon Dioxide 24 Anion Gap 6.0 Creatinine 2.13 H D Est Cr Clr Drug Dosing 65.3 - Recent Pertinent Medications Outpatient Anti-diabetic Regimen: * Levemir 30 units SC qAM, 60 units qPM * Novolog SC AC, 15 units with breakfast, 20 units with lunch, 20 units with dinner * A1c = 7.6 % in December 2018 per H&P The patient is currently receiving: * Basal insulin: Levemir 70 units 4/18 PM * Correctional Insulin: Novolog Correction per scale ACHS Goal Range: Low 110 mg/dL - High 140 mg/dL Correction Factor: 15 mg/dL/unit * Prandial insulin: Per carb ratio of 1 unit per 5 grams CHO consumed * Oral Agents: Risk Factors for Insulin Resistance: * Diet: T2DM - Assessment & Plan Assessment & Plan: ASSESSMENT: * 48 yo M with T2DM with good control as an outpatient per HbA1c in H&P admitted with symptomatic bradycardia. No previous visits to [facility]. * BSG's in 300's on arrival - trended down nicely to 109 mg/dL this AM with overnight checks and more aggressive Levemir dosing last night * No significant stressors at this time - can likely resume regimen similar to outpatient * Levemir 20 units x1 now (to total 90 units in the last 24 hours, same as outpatient). Then scale this evening based on BSG. * OK to tighten CHO ratio as BSG increased from 109 to 223 mg/dL from breakfast to lunch after the patient consumed 68 g CHO at breakfast. Will keep overn ight checks 2nd significant correction (16 units) required overnight last night PLAN FOR INPATIENT GLYCEMIC CONTROL: * Basal insulin: Levemir 20 units x1 now then HS based on BSG as follows * 60 units for BSG < 140 mg/dL * 70 units for BSG 140-180 mg/dL * 80 units for BSG >180 mg/dL * Bolus insulin * NovoLog per scale ACHS with 2 overnight checks * Goal Range: Low 120 mg/dL - High 150 mg/dL * Correction Factor: 15 mg/dL/unit * Nutritional / Prandial insulin per carb ratio of 1 unit per 4 grams CHO consumed * Please note that the plan above was derived based on current level of insulin resistance and hospital stress. These recommendations are appropriate for inpatient admission only. Plan of care upon discharge will need to be reassessed to avoid potential outpatient hypo/hyperglycemia. Thank you.
--- NOTE | 2019-03-16 16:26 | Hospitalist Progress Note ---
Date of Service March 16, 2019 Assessment & Plan (1) Bradycardia: (2) History of implantable cardioverter-defibrillator (ICD) placement: 48-year-old male with a PMH of systolic heart failure S/P ICD placement, DM II, HTN, HLD, COPD, CKD III and other medical problems listed below who presented by [facility] team today due to reported bradycardia in the 30s-40s. HR on tele monitor has been btw 65 to 80 ICD ([employer]) placed in 2013 at [facility]. Device interrogation done and function properly with battery life 22% Clinically stable Follow up with cardiology in [place] (3) Elevated troponin: Possible related to ACK on CKD3 Troponin mildly elevated at 0.106 on admission, then dropped to 0.099 Denies any chest pain Echo showed Severely reduced LV systolic fx with severe global hypokinesis with EF 25-30% Continue aspirin, statin and carvedilol Stable (4) Elevated d-dimer: Elevated D-Dimer on admission at 620 Saturated well on RA No tachycardia and denies any SOB CTA chest contraindicated due to Elevated ERENDIRA If pt becomes symptomatic, will consider to get a V/Q scan Venous Doppler of LE showed no DVT (5) Acute kidney injury superimposed on chronic kidney disease: Cr elevated at 2.5 (baseline ~1.6-2), BUN of 55 Creatinine improved to 2.1 Torsemide was on hold Renal u/s showed no evidence of right renal hydronephrosis Check BMP within on week Avoid nephrotoxic agents (6) Hyperglycemia: (7) Diabetes mellitus, type II: BS elevated on admission Hba1c 7.6 on 01/16 Pharmacy on board for glycemic management Continue monitor BS (8) Systolic heart failure: Appears euvolemic on exam Echo showed Severely reduced LV systolic fx with severe global hypokinesis with EF 25-30%. No change compare to previous echo on 12/15 Torsemide and spironolactone resume Follow a low salt diet (9) HTN (hypertension): BP stable Continue hydralazine, carvedilol, torsemide, spironolactone and losartan Monitor BMP to monitor electrolytes and renal function (10) COPD (chronic obstructive pulmonary disease): Stable Continue home therapy (11) JD on CPAP: CPAP HS DVT Ppx: SCDs Code status: FULL PCP: [facility] Dispo: Discharge home today Follow up with your cardiology in [place] Check BMP in 1 week Subjective Pt was seen and examined Lying in bed with no distress Pt said that he feels ok today He has been walking around with no distress Denies any chest pain, palpitation and SOB Physical Exam Physical Exam: General- No acute distress Head- atraumatic Eyes- PERRL, EOMI, ENT- oropharynx clear Neck- supple, no JVD Lungs- clear to auscultation Heart- regular rhythm; no murmur Abdomen- normal bowel sounds, soft, nontender Extremities- no calf tenderness Neuro- alert, oriented x 3; PERRL, EOMI; no facial palsy; no dysarthria Skin- warm & dry Results & Data Vital Signs (Past 12 Hours) Vital Signs Temp Pulse Pulse Resp BP BP Pulse Ox 03/16/19 15:04 36.9 C 76 18 135/67 97 03/16/19 13:19 79 125/78 03/16/19 11:21 37.1 C 74 18 134/74 98 03/16/19 08:00 61 03/16/19 07:37 36.8 C 68 18 117/76 97 03/16/19 05:06 65 18 97
[2019-03-16] MEDS ORDERED: INSULIN DETEMIR FLEXPEN/FLEX TOUCH 100 UNITS/ML 3ML SC SCH (21:00)
--- NOTE | 2019-03-18 20:19 | Discharge Summary ---
Date of Service March 16, 2019 Admission HPI Per Admitting Provider This is a 48-year-old male with a PMH of systolic heart failure S/P ICD placement, DM II, HTN, HLD, COPD, CKD III and other medical problems listed below who presented by [facility] team today due to reported bradycardia in the 30s-40s. Patient has felt fatigued, lightheaded and short of breath for the past month. Denies any headache, chest pain, orthopnea, PND, wheezing or lower extremity edema. Denies any weight gain. Has recently establish care with [facility] and was being seen this morning with by nutrition for optimization of diabetes. When vitals were taken, heart rate was found to be in the 40s and patient was sent to the ED for further evaluation. Patient reports a lateral wall pacemaker placed in 2013 at [facility] in [place]. Last interrogation was in 2015. Had a 2D echo performed in December 2018 but non-optimal study was performed and EF was unable to be quantified. Previous echo was from April 2018 which revealed EF of 25 to 30%. Does not think he is followed with a senior health physics technician in the past. Denies any recent illness. No fever, chills, headache, palpitations, nausea, vomiting, abdominal pain, dysuria, diarrhea or constipation. Upon arrival in ED, patient is hemodynamically stable. Saturating at 97% on room air. Heart rate has been in the 70s to 80s. No leukocytosis. Potassium of 5.8, creatinine of 2.5, BUN of 55. Troponin elevated at 0.106. Glucose of 339, beta hydroybutyric acid WNL. Admission Exam Per Admitting Provider General Appearance: WD/WN, no apparent distress, morbidly obese Head: normocephalic, atraumatic Eyes: normal inspection, PERRL, EOMI ENT: hearing grossly normal, pharynx normal (moist mucous membranes) Neck: supple, no JVD, no adenopathy Respiratory/Chest: Decreased lung sounds at bases. No wheezes, rales or rhonci. No respiratory distress or accessory muscle use Cardiovascular: regular rate, rhythm, no murmur, normal peripheral pulses Abdomen/GI: normal bowel sounds, soft, non-tender to palpation Extremities/Musculoskelatal: normal inspection, no calf tenderness, normal capillary refill, no pedal edema Neurologic/Psych: alert, normal mood/affect, oriented x 3 Skin: normal color, warm/dry Principal Diagnosis Bradycardia History of implantable cardioverter-defibrillator (ICD) placement: Elevated troponin Elevated D-dimer Acute kidney injury superimposed on chronic kidney disease: Diabetes type 2 Systolic heart failure HTN COPD Discharge Exam General- No acute distress Head- atraumatic Eyes- PERRL, EOMI, ENT- oropharynx clear Neck- supple, no JVD Lungs- clear to auscultation Heart- regular rhythm; no murmur Abdomen- normal bowel sounds, soft, nontender Extremities- no calf tenderness Neuro- alert, oriented x 3; PERRL, EOMI; no facial palsy; no dysarthria Skin- warm & dry Discharge Data Allergies Allergy/AdvReac Type Severity Reaction Status Date / Time No Known Allergies Allergy Unverified 03/15/19 12:50 Consultations 03/15/19 14:18 ED Decision to Admit Stat 03/15/19 18:19 Consult Case Management - Discharge Planning Routine Ordered Studies 03/15/19 15:04 US renal/blad retro comp Routine 03/15/19 16:42 US venous doppler LE BI Routine US venous doppler LE BI CLINICAL HISTORY: Leg swelling COMPARISON STUDY: No previous studies for comparison. FINDINGS: Real-time and color flow Doppler imaging were performed. Flow was seen within the femoral, popliteal and calf veins with no intraluminal thrombus demonstrated. The saphenous vein is patent. IMPRESSION: No evidence of lower extremity DVT. Electronically signed by: Melvin Lawson M.D. 03/15/2019 7:06 PM Dictated: 03/15/191905 Transcribed: 03/15/191905 EXAMINATION: RENAL ULTRASOUND CLINICAL HISTORY: Acute renal insufficiency. Evaluate for renal obstruction. COMPARISON STUDY: FINDINGS: The right kidney measures 12.1 cm. The left kidney measures 11.9 cm. There is no right-sided hydronephrosis. There is minimal dilatation of the left renal pelvis. Is a 24 mm right renal cyst. There is borderline increased renal cortical echogenicity. The bladder was not fully distended. Neither ureteral jet was visualized. IMPRESSION : 1. 24 mm right renal cyst 2. No evidence of right renal hydronephrosis 3. Mild dilatation of the left renal pelvis. Electronically signed by: Melvin Lawson M.D. 03/15/2019 7:08 PM Dictated: 03/15/191905 Transcribed: 03/15/191905 XR chest 1V portable HISTORY: Evaluate pacemaker. PER ER DR REQUEST COMPARISON: None. FINDINGS: There is a left lower lateral chest wall pacemaker. There is a single lead which appears intact. Of note, only the proximal portion of the lead is identified on this study. IMPRESSION: Confirmation of a left-sided single lead pacemaker. Electronically signed by: Elver Barker M.D. 03/15/2019 2:09 PM Dictated: 03/15/19 1408 Transcribed: 03/15/19 1408 SINGLE VIEW CHEST CLINICAL HISTORY: Dizziness. FINDINGS: An AP, portable, upright chest radiograph is obtained. No prior studies are available for comparison at the time of dictation. The examination is degraded by portable technique and patient rotation. A single lead cardiac AICD is present within the left lateral chest wall. The heart is enlarged. There is pulmonary vascular congestion and mild interstitial edema. Trace pleural effusions are suspected. Bibasilar atelectasis is noted. No pneumothorax is seen. The skeletal structures are osteopenic. The bony thorax is grossly intact. Advanced arthritic change is seen in the left shoulder. IMPRESSION: 1. Cardiomegaly and AICD with evidence of congestive failure. 2. Suspect trace pleural effusions. Electronically signed by: Jeremias Escalona M.D. 03/15/2019 12:43 PM Dictated: 03/15/19 1242 Transcribed: 03/15/19 1242 Hospital Course (1) Bradycardia: (2) History of implantable cardioverter-defibrillator (ICD) placement: 48-year-old male with a PMH of systolic heart failure S/P ICD placement, DM II, HTN, HLD, COPD, CKD III and other medical problems listed below who presented by [facility] home team today due to reported bradycardia in the 30s-40s. HR on tele monitor has been btw 65 to 80 ICD ([employer]) placed in 2013 at [facility]. Device interrogation done and function properly with battery life 22% Clinically stable Follow up with cardiology in [place] (3) Elevated troponin: Possible related to ACK on CKD3 Troponin mildly elevated at 0.106 on admission, then dropped to 0.099 Denies any chest pain Echo showed Severely reduced LV systolic fx with severe global hypokinesis with EF 25-30% Continue aspirin, statin and carvedilol Stable (4) Elevated d-dimer: Elevated D-Dimer on admission at 620 Saturated well on RA No tachycardia and denies any SOB CTA chest contraindicated due to Elevated ERENDIRA If pt becomes symptomatic, will consider to get a V/Q scan Venous Doppler of LE showed no DVT (5) Acute kidney injury superimposed on chronic kidney disease: Cr elevated at 2.5 (baseline ~1.6-2), BUN of 55 Creatinine improved to 2.1 Torsemide was on hold Renal u/s showed no evidence of right renal hydronephrosis Check BMP within on week Avoid nephrotoxic agents (6) Hyperglycemia: (7) Diabetes mellitus, type II: BS elevated on admission Hba1c 7.6 on 01/16 Pharmacy on board for glycemic management Continue monitor BS (8) Systolic heart failure: Appears euvolemic on exam Echo showed Severely reduced LV systolic fx with severe global hypokinesis with EF 25-30%. No change compare to previous echo on 12/15 Torsemide and spironolactone resume Follow a low salt diet (9) HTN (hypertension): BP stable Continue hydralazine, carvedilol, torsemide, spironolactone and losartan Monitor BMP to monitor electrolytes and renal function (10) COPD (chronic obstructive pulmonary disease): Stable Continue home therapy (11) JD on CPAP: CPAP HS DVT Ppx: SCDs Code status: FULL PCP: [facility] Dispo: Discharge home today Follow up with your cardiology in [place] Check BMP in 1 week Total Time Total Time Spent Total Time Spent (In Minutes): 35 minutes Total Time Includes: Examination of the Patient, Discharge Planning, Medication Reconciliation, Communication With Other Providers and Other Discharge Plan Discharge Items Patient Disposition: Home - Self-Care Reason For Visit: DIZZINESS,REPORTED BRADYCARDIA AT HOME Discharge Diagnosis: Bradycardia History of implantable cardioverter-defibrillator (ICD) placement: Elevated troponin Elevated D-dimer Acute kidney injury superimposed on chronic kidney disease: Diabetes type 2 Systolic heart failure HTN COPD Discharge Goals: Decrease discomfort, Improve disease control, Improve function and Increase independence Activity: Resume your previous activity Non-emergency contact: Primary Care Provider and Graphic Editor Call non-emergency contact if: you have any medication questions Follow-up/Referrals: Dex Kumar V., [Primary Care Provider] - Diet: Carb Consistent or DM2 and Heart Healthy Addtl Provider Instructions: Follow up with your primary care provider Follow up with your cardiology (please call to schedule for the follow appointment) Check BMP within 1 week to check electrolytes and renal function Monitor blood sugar closely Counseling on tobacco abuse You have a [employer] ICD device. Battery life 22% Prescriptions: Continued atorvastatin 40 mg tablet 40 mg PO DAILY RF: 0 fluticasone propion-salmeterol [Wixela Inhub] 250-50 mcg/dose blister with device 1 puff inhalation BID RF: 0 carvedilol 25 mg tablet 25 mg PO BID RF: 0 torsemide 20 mg tablet 40 mg PO DAILY RF: 0 sumatriptan succinate 50 mg tablet 100 mg PO UD PRN (Reason: Migraine Headache) RF: 0 valsartan 80 mg tablet 80 mg PO BID RF: 0 spironolactone 25 mg tablet 25 mg PO DAILY RF: 0 isosorbide mononitrate 60 mg tablet extended release 24 hr 60 mg PO DAILY RF: 0 potassium chloride 20 mEq tablet,ER particles/crystals 20 meq PO DAILY RF: 0 aspirin 81 mg tablet,chewable 81 mg PO DAILY RF: 0 albuterol sulfate 90 mcg/actuation HFA aerosol inhaler 2 puff inhalation Q4H PRN (Reason: Shortness Of Breath) RF: 0 clotrimazole 10 mg Alejo 10 mg PO UD RF: 0 hydralazine 100 mg Tablet 100 mg PO TID RF: 0 trazodone 300 mg Tablet 300 mg PO HS RF: 0 Levemir U-100 Insulin 100 unit/mL Solution 30 unit SUBCUT QAM RF: 0 Levemir U-100 Insulin 100 unit/mL Solution 60 unit SUBCUT HS RF: 0 Novolog Flexpen U-100 Insulin 100 unit/mL (3 mL) Insulin Pen 15 - 20 units subcut AC RF: 0 Stand-Alone Forms: [facility] Discharge Orders: Discharge Order (Routine); Ordered 03/16/19 Ordered By: Keara Danielson Admission Data Admit Date/Time: 03/15/19 14:56 Attending Provider: Keara Danielson Admit Provider: Pasquale Bryant Primary Care Provider: Dex Kumar V. Other Providers: Pasquale Bryant Service: Telemetry Medical Other Interventions: Discharge Summary Assessment (RN) Last Done: 03/16/19 18:27 DC Date/Time DO NOT enter until pt leaves facility: 03/16/19 18:47
== END 2019-03-16 18:47 | disposition home or self-care (01) | DRG 309 ==
LOC: ED 12:04 → 2N 14:56